=== PATIENT | male | born 1945 ===

== ENCOUNTER 2018-02-02 12:05 | Emergency (ER) | payer MEDICARE, BC ==
[2018-02-02] MEDS ORDERED: Tetan/Diph/Pertus SYR(Tdap)* 0.5 ML SYR(BOOSTRIX) use SYR IM ONE (12:16)
--- NOTE | 2018-02-02 12:25 | UC ---
Laceration HPI - HPI Summary HPI Summary: Pt presents with laceration to left hand sustained about 20min [employer]. 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 He bandaged the area and came to urgent care. Unsure when last tetanus was. - History Of Current Complaint Chief Complaint: UCLaceration Stated Complaint: HAND LAC Time Seen by Provider: 02/02/18 12:25 Hx Obtained From: Patient Laceration Location: Hand Mechanism Of Injury: Sharp Trauma Severity: Mild Pain Intensity: 2 Pain Scale Used: 0-10 Numeric - Allergies/Home Medications Allergies/Adverse Reactions: Allergies Allergy/AdvReac Type Severity Reaction Status Date / Time eggs Allergy Unknown Uncoded 02/02/18 12:20 Reaction Details PMH/Surg Hx/FS Hx/Imm Hx Endocrine History: Dyslipidemia - Surgical History Surgical History: Yes Surgery Procedure, Year, and Place: T&A. Hernia- as child - Family History Known Family History: Positive: Cardiac Disease - Social History Lives: With Family Alcohol Use: None Substance Use Type: None Smoking Status (MU): Never Smoked Tobacco Review of Systems Constitutional: Negative Skin: Other - Laceration to left hand Respiratory: Negative Cardiovascular: Negative Neurovascular: Negative Musculoskeletal: Negative Neurological: Negative Psychological: Negative All Other Systems Reviewed And Are Negative: Yes Physical Exam - Summary Physical Exam Summary: GENERAL: NAD. WDWN. No pain distress. SKIN: 4.5cm linear laceration to dorsal left hand extending from just below to the 3rd digit PIP to the 4th MCP. Subcutaneous tissue exposed. 3rd digit extensor tendon aponeurosis visualized with underlying intact appearing tendon. NECK: Supple. Nontender. No lymphadenopathy. CHEST: No accessory muscle use. Breathing comfortably and in no distress. CV: Pulses intact. Brisk cap refill. MSK: Left hand and all fingers. FROM. Good flexion and extension of left 3rd digit. NEURO: Alert. Sensations intact all fingers of left hand PSYCH: Age appropriate behavior. Triage Information Reviewed: Yes Vital Signs: Initial Vital Signs Temp 98.0 F 02/02/18 12:15 Pulse 74 02/02/18 12:15 Resp 20 02/02/18 12:15 BP 155/101 02/02/18 12:15 Pulse Ox 98 02/02/18 12:15 Laceration Repair - Laceration Repair 1 Description: Linear Laceration Size After Repair: Length (cm) - 4.5 Anesthesia Used: 2.0% Lido Irrigation With Pressure Irrigation Device: Yes Closure Material: Sutures - NINE 6-0 Closure Method: Single Layer Suture Of: Skin Suture Type: Nylon - 6-0 Laceration Course/Dx - Course/Dx Course Of Treatment: Given the depth and length of the wound, I called Dr. Barreto. He advised to close the skin and place pt in a splint - will f/u with him on sunday. A time out was performed, witnessed, and signed. The area was irrigated with 500mL sterile saline. 3mL of 2% lidocaine without epi was administered and good anesthetization was achieved. In the usual sterile fashion , NINE 6-0 nylon sutures were placed. FOUR of these sutures were horizontal mattress and FIVE were simple interrupted. The wound was bandaged with xeroform , telfa, and kerlix. To stablize the wound and allow healing, he was placed in a volar splint. Pt tolerated procedure well. His tdap was updated today. - Differential Dx - Laceration/Wound Provider Diagnoses: Left hand 4.5cm laceration Discharge - Sign-Out/Discharge Documenting (check all that apply): Discharge/Admit/Transfer - Discharge Plan Condition: Stable Disposition: HOME Patient Education Materials: Care For Your Stitches (DC), Laceration (ED) Referrals: Sridhar Guerrero DO [Primary Care Provider] - Cezar Barreto MD [Medical Doctor] - 02/05/18 Additional Instructions: If you develop a fever, shortness of breath, chest pain, new or worsening symptoms - please call your PCP or go to the ED. Your blood pressure was high at todays visit. Please see your primary provider within 4 weeks for recheck and re-evaluation. 1) Please keep the area bandaged, clean, dry, and intact until your appointment with Dr. Barreto. 2) If you develop a fever, colored or thick discharge, increased pain or swelling - please call your PCP or go to the ED. 3) Please return in 10-14 days to have your NINE sutures removed. 4) Sunday morning, please call Dr. Barreto at the number below to schedule an appointment for Sunday02/05/18...I spoke to Dr. Barreto today and he is aware of your case. - Billing Disposition and Condition Condition: STABLE Disposition: HOME Procedures - Splinting Location: Left hand Hand-Made Type: orthoglass Splint: volar Pre-Proc Neuro Vasc Exam: normal Post-Proc Neuro Vasc Exam: normal - Laceration/Wound Repair 1 Suture Type: Nylon - 6-0
[2018-02-02] MEDS ORDERED: Lidocaine 2% PF * 5 ML VIAL INJ ONE (12:57)
--- NOTE | 2018-02-02 13:30 | RAD ---
INDICATION: Large laceration from the level of the third metacarpal phalangeal joint to the proximal phalanx. COMPARISON: No relevant prior exams available on the [facility] [place] PACS for comparison. TECHNIQUE: AP, lateral, and oblique views LEFT hand. REPORT: Negative for fracture or articular malalignment. Soft tissue swelling most prominent over the dorsum of the hand at the metacarpal phalangeal joints and proximal phalanges. No conspicuous foreign body. Joint space narrowing and hook like osteophytes at the metacarpal phalangeal joints suspicious for potential hemachromatosis related arthropathy. 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 Bone density appears decreased throughout. IMPRESSION: Dorsal soft tissue swelling. Negative for fracture.
[2018-02-02 14:27] VITALS: BP 183/99
== END 2018-02-02 14:22 | disposition home or self-care (01) ==
LOC: UCEAST 12:05
DX: S61.412A Laceration without foreign body of left hand, initial encounter (principal); W29.2XXA Contact with other powered household machinery, initial encounter; Y93.K3 Activity, grooming and shearing an animal; Y92.9 Unspecified place or not applicable; Z23 Encounter for immunization; E78.5 Hyperlipidemia, unspecified
CPT/HCPCS: 12002; 90471; 90715; 99212; G0463